=== PATIENT | female | born 2005 | race Two or more races ===

== ENCOUNTER 2023-11-25 09:39 | Emergency (ER) | payer MEDICAID ==
[~2023-11-25] VITALS: Ht 167.6 cm; Wt 60.0 kg
[2023-11-25 12:27] VITALS: BP 139/90; PULSE 98; RESP 16; TEMP 97.5; O2SAT 95
[2023-11-25] MEDS ORDERED: METH4PAK PO (12:29)
[2023-11-25] MEDS ORDERED: LIDO2SOL26 MT (12:29)
[2023-11-25] MEDS ORDERED: AZIT-185 PO (12:29)
[2023-11-25] MEDS ORDERED: ACET500T58 PO (12:29)
[2023-11-25] MEDS ORDERED: NAP500T PO (12:29)
== END 2023-11-25 12:30 | disposition home or self-care (01) ==
LOC: ER 09:39
DX: J03.90 Acute tonsillitis, unspecified (principal)

== ENCOUNTER 2024-09-21 09:27 | Emergency (ER) | payer MEDICAID ==
[~2024-09-21] VITALS: Ht 167.6 cm; Wt 63.8 kg
[~2024-09-21 09:27] MED LIST: ACET500T58 PO; AZIT-185 PO; LIDO2SOL26 MT; METH4PAK PO; NAP500T PO
[2024-09-21 09:37] VITALS: BP 134/84; PULSE 93; RESP 17; O2SAT 100
[2024-09-21] MEDS ORDERED: ACET500T58 PO (10:42)
[2024-09-21] MEDS ORDERED: PROM1SOL4 PO (10:42)
[2024-09-21] MEDS ORDERED: DOXY-286 PO (10:42)
[2024-09-21] MEDS ORDERED: BENZ100C97 PO (10:42)
--- NOTE | 2024-09-21 10:43 | ED.PDOC ---
SOB-HPI HPI Comments 19-year-old female with no MHx presents with a chief complaint of URI symptoms x4 days. Complains of fever cough sore throat nausea Last menstrual cycle was 09/06 and is not sexually active. Denies fevers chills night sweats unintentional weight loss Denies persistent chest pain, shortness of breath, leg swelling Denies history of asthma nor any breathing conditions Denies history of pneumonia Denies recent international travel Chief Complaint: Flu like Time Seen by MD: 10:05 Primary Care Provider: none Reviewed notes: Nurses Notes, Medications, Allergies Information Source: Patient Mode of Arrival: Ambulatory All Other Systems: Reviewed and Negative (per hpi) Physical Exam General Appearance: No Apparent Distress, Normal HEENT: Normal ENT Inspection, Pharynx Normal, TMs Normal Neck: Full Range of Motion, Non-Tender, Normal, Normal Inspection Respiratory: Chest Non-Tender, Lungs Clear, No Accessory Muscle Use, No Respiratory Distress, Normal Breath Sounds Cardiovascular: No Edema, No JVD, No Murmur, No Gallop, Regular Rate/Rhythm Breast Exam: Deferred Gastrointestinal: No Organomegaly, Non Tender, No Pulsatile Mass, Normal Bowel Sounds, Soft Genitalia: Deferred Pelvic: Deferred Rectal: Deferred Extremities: No calf tenderness, Normal capillary refill, Normal inspection, Normal range of motion, Non-tender, No pedal edema Musculoskeletal : Apperance: Normal Neurologic: Alert, No Motor Deficits, Normal Affect, Normal Mood, No Sensory Deficits Cerebellar Function: Normal Reflexes: Normal Skin: Dry, Normal Color, Warm Lymphatic: No Adenopathy Was a procedure done? Was a procedure done?: No Differential Dx Differential Diagnosis: URI X-Ray, Labs, Meds, VS Vital Signs Date Time Temp Pulse Resp B/P (MAP) Pulse Ox O2 Delivery O2 Flow Rate FiO2 09/21/24 09:37 98.0 93 17 134/84 (101) 100 X-Ray, Labs, Meds, VS Comment On presentation, the patient is afebrile and has stable vital signs. The patient is overall well-appearing nontoxic on exam. On physical exam, respirations even and unlabored, clear to auscultation bilaterally. Oxygen stable on room air. Did not have any focal lung findings and therefore chest x-ray was not indicated during this exam Low suspicion of strep pharyngitis given physical exam findings and patient's presenting symptoms No signs of meningismus on exam Overall, the patient is well hydrated and nontoxic. Empiric tx. Plan for symptomatic control for fever and pain as needed. The patient was able to tolerate p.o. intake in the ED. at this time, patient is safe for discharge home. The exam findings and plan discussed. We will discharge home with PCP follow up and strict return precautions. Discussed that cough can linger up to 6 weeks after viral URI Supportive care and return precautions discussed Recommended vitamin C, rest, handwashing, and symptomatic care. Expect 2-week course with possibly of cough lingering up to 6 weeks. Nonpharmacological remedies for fluids has been recommended as well Time of 1ST Reevaluation: 10:37 Reevaluation 1ST: Improved Patient Education/Counseling: Diagnosis, Treatment Family Education/Counseling: Diagnosis, Treatment Departure 1 Departure Time of Disposition: 10:40 Impression: Primary Impression: Viral syndrome Disposition: HOME / SELF CARE / HOMELESS Condition: Stable e-Prescriptions Benzonatate (Benzonatate) 100 Mg Cap 1 CAP PO TID for 10 Days, #30 CAP 0 Refills Prov: ALONDRA ISBELL NP 09/21/24 Acetaminophen (Acetaminophen) 500 Mg Tab 500 MG PO Q6HP PRN for 10 Days, #40 TAB 0 Refills Prov: ALONDRA ISBELL NP 09/21/24 Promethazine-Dm (Promethazine Dm 6.25-15 mg/5Ml) 1 Felisha Felisha 5 ML PO TID for 10 Days, #150 ML 0 Refills Prov: ALONDRA ISBELL NP 09/21/24 Doxycycline Hyclate (DOXYCYCLINE HYCLATE) 100 Mg Tab 1 TAB PO BID for 7 Days, #14 TAB 0 Refills Prov: ALONDRA ISBELL NP 09/21/24 Discharged With: Self Critical Care Note Critical Care Time?: No Stability Stability form required: No Heart Score Heart Score: Heart Score Response (Comments) Value History N/A 0 EKG N/A 0 Age N/A 0 Risk Factors N/A 0 Troponin N/A 0 Total 0 ALONDRA ISBELL NP Sep 21, 2024 10:43
== END 2024-09-21 10:54 | disposition home or self-care (01) ==
LOC: ER 09:27
DX: B34.9 Viral infection, unspecified (principal); R50.9 Fever, unspecified; R05.9 Cough, unspecified